=== PATIENT | male | born 1960 | race Two or more races ===

== ENCOUNTER 2016-06-02 19:51 | Emergency (ER) | payer OTHER ==
[~2016-06-02] VITALS: Ht 170.2 cm; Wt 68.0 kg
[2016-06-02] MEDS ORDERED: Tubing IV Cassette IV ONE (20:24)
--- NOTE | 2016-06-02 20:38 | Emergency Room Report ---
History of Present Illness General Chief Complaint: Alcohol Intoxication Source: Patient, EMS (CORETTA PACHECO D.O.) Present Illness HPI Patient was brought in from the street with complaints of altered mental status Patient reportedly had order of alcohol Initially patient was somewhat somnolent sluggish to respond however over his stay he has become more responsive Patient is able to deny any chest pain Denies any vomiting or diarrhea denies any back or flank pain he was not sure how he ended up in the hospital History of present illness remains somewhat limited given the patient's initial ability to provide history (CORETTA PACHECO D.O.) Allergies: Coded Allergies: No Known Allergies (Unverified , 06/02/16) Patient History Limited by: medical condition Past Medical History: see triage record Pertinent Family History: unable to obtain Reviewed Nursing Documentation: PMH: Agreed, PSxH: Agreed (CORETTA PACHECO D.O.) Nursing Documentation-PMH Past Medical History: No Stated History (CORETTA PACHECO D.O.) Review of Systems All Other Systems: limited - Other than the ones mentioned in the history of present illness all others are reviewed however they do stay limited due to the patient's mental status (CORETTA PACHECO D.O.) Physical Exam Vital Signs Date Time Temp Pulse Resp B/P Pulse Ox O2 Delivery O2 Flow Rate FiO2 06/02/16 19:47 98.1 92 17 153/101 92 Sp02 EP Interpretation: reviewed, normal General Appearance: no apparent distress Head: normocephalic, atraumatic Eyes: bilateral eye PERRL ENT: normal pharynx, no angioedema Neck: full range of motion, supple, thyroid normal Respiratory: lungs clear, normal breath sounds Cardiovascular #1: regular rate, rhythm, no edema Gastrointestinal: non tender, soft Musculoskeletal: other - Patient moving all extremities without any obvious focal deficit Neurologic: other - Patient has become more oriented to his stay, initially the crease GCS nonverbal at this time the patient has become more verbal and appropriately responsive, , Psychiatric: mood/affect normal Skin: other Lymphatic: no adenopathy (CORETTA PACHECO D.O.) Medical Decision Making Diagnostic Impression: Primary Impression: Acute alcoholic intoxication Qualified Codes: F10.129 - Alcohol abuse with intoxication, unspecified Additional Impression: Hyperglycemia ER Course Patient awake and states has metformin at home. Ambulates without difficulty. Glucose improved. In denial about problems with sugars and alcohol. Not suicidal. Laboratory Tests Test 06/02/16 20:10 06/02/16 21:45 White Blood Count 10.1 K/UL (4.8-10.8) Red Blood Count 5.56 M/UL (4.70-6.10) Hemoglobin 18.1 G/DL (14.2-18.0) *H Hematocrit 51.3 % (42.0-52.0) Mean Corpuscular Volume 92 FL (80-99) Mean Corpuscular Hemoglobin 32.6 PG (27.0-31.0) H Mean Corpuscular Hemoglobin Concent 35.4 G/DL (32.0-36.0) Red Cell Distribution Width 12.1 % (11.6-14.8) Platelet Count 202 K/UL (150-450) Mean Platelet Volume 10.3 FL (6.5-10.1) H Neutrophils (%) (Auto) 71.6 % (45.0-75.0) Lymphocytes (%) (Auto) 20.0 % (20.0-45.0) Monocytes (%) (Auto) 5.9 % (1.0-10.0) Eosinophils (%) (Auto) 1.0 % (0.0-3.0) Basophils (%) (Auto) 1.4 % (0.0-2.0) Prothrombin Time 10.2 SEC (9.30-11.50) Prothrombin Time INR 1.0 (0.9-1.1) PTT 22 SEC (23-33) L Sodium Level 139 mEQ/L (135-145) Potassium Level 4.0 mEQ/L (3.4-4.9) Chloride Level 93 mEQ/L (98-107) L Carbon Dioxide Level 24 mEQ/L (20-30) Anion Gap 22 (5-15) H Blood Urea Nitrogen 15 mg/dL (7-23) Creatinine 1.1 mg/dL (0.7-1.2) Estimate Glomerular Filtration Rate > 60 mL/min (>60) Glucose Level 451 mg/dL (74-106) H Calcium Level 9.2 mg/dL (8.6-10.2) Total Bilirubin 0.3 mg/dL (0.0-1.2) Aspartate Amino Transferase (AST) 45 U/L (5-40) H Alanine Aminotransferase (ALT) 62 U/L (3-41) H Alkaline Phosphatase 85 U/L (40-129) Total Creatine Kinase 364 U/L (38-174) H Creatine Kinase MB 2.4 ng/mL (< 6.7) Creatine Kinase MB Relative Index 0.6 Troponin I < 0.30 ng/mL (<=0.30) Pro-B-Type Natriuretic Peptide 26 pg/mL (0-125) Total Protein 7.2 g/dL (6.6-8.7) Albumin 4.5 g/dL (3.5-5.2) Globulin 2.7 g/dL Albumin/Globulin Ratio 1.6 (1.0-2.7) Lipase 65 U/L (< 60) H Serum Alcohol 275 mg/dL Urine Opiates Screen Negative (NEGATIVE) Urine Barbiturates Screen Negative (NEGATIVE) Phencyclidine (PCP) Screen Negative (NEGATIVE) Urine Amphetamines Screen Negative (NEGATIVE) Urine Benzodiazepines Screen Negative (NEGATIVE) Urine Cocaine Screen Negative (NEGATIVE) Urine Marijuana (THC) Screen Negative (NEGATIVE) (Bc Castillo M.D.) Rhythm Strip Diag. Results EP Interpretation: yes Rhythm: NSR, no PVC's, no ectopy (Bc Castillo M.D.) Chest X-Ray Diagnostic Results EP Interpretation: Yes Findings: no consolidation, no effusion, no pneumothorax, no acute cardiopulmonary disease Number of Views: 1 (Bc Castillo M.D.) CT/MRI/US Diagnostic Results CT/MRI/US Diagnostic Results : Imaging Test Ordered: head Impression lacune, no bleed/fx (Bc Castillo M.D.) Last Vital Signs Date Time Temp Pulse Resp B/P Pulse Ox O2 Delivery O2 Flow Rate FiO2 06/02/16 19:47 98.1 92 17 153/101 92 (CORETTA PACHECO D.O.) Last Vital Signs Date Time Temp Pulse Resp B/P Pulse Ox O2 Delivery O2 Flow Rate FiO2 06/03/16 02:05 97.0 90 18 117/78 97 Room Air Status: improved (Bc Castillo M.D.) Disposition: HOME, SELF-CARE Condition: Improved CORETTA PACHECO D.O. Jun 02, 2016 20:38 Bc Castillo M.D. Jun 03, 2016 02:02
[2016-06-02 20:40] LABS: BASOPHILS % (AUTO) 1.4 % (0.0-2.0); MEAN CORPUSCULAR HEMOGLOBIN 32.6 PG (27.0-31.0); MEAN CORPUSCULAR HGB CONC 35.4 G/DL (32.0-36.0); MEAN CORPUSCULAR VOLUME 92 FL (80-99); MEAN PLATELET VOLUME 10.3 FL (6.5-10.1); MONOCYTES % (AUTO) 5.9 % (1.0-10.0); NEUTROPHILS % (AUTO) 71.6 % (45.0-75.0); PLATELET COUNT 202 K/UL (150-450); RED BLOOD COUNT 5.56 M/UL (4.70-6.10); RED CELL DISTRIBUTION WIDTH 12.1 % (11.6-14.8); WHITE BLOOD COUNT 10.1 K/UL (4.8-10.8)
[2016-06-02 20:56] LABS: PROTHROMBIN TIME 10.2 SEC (9.30-11.50)
[2016-06-02 21:10] LABS: TROPONIN I < 0.30 ng/mL (<=0.30)
[2016-06-02 21:14] LABS: ALANINE AMINOTRANSFERASE 62 U/L (3-41); ALBUMIN/GLOBULIN RATIO 1.6 (1.0-2.7); ALCOHOL 275 mg/dL; ANION GAP 22 (5-15); ASPARTATE AMINO TRANSFERASE 45 U/L (5-40); CALCIUM 9.2 mg/dL (8.6-10.2); CARBON DIOXIDE 24 mEQ/L (20-30); CHLORIDE 93 mEQ/L (98-107); CREATININE 1.1 mg/dL (0.7-1.2); GLOMERULAR FILTRATION RATE > 60 mL/min (>60); HEMOLYSIS 8; LIPASE 65 U/L (< 60); SODIUM 139 mEQ/L (135-145); TOTAL PROTEIN 7.2 g/dL (6.6-8.7)
[2016-06-02 21:24] VITALS: BP 129/84
[2016-06-02 21:24] LABS: CKMB 2.4 ng/mL (< 6.7)
[2016-06-02 23:53] VITALS: BP 117/79
[2016-06-03 01:54] VITALS: BP 117/78
[2016-06-03 02:05] VITALS: BP 117/78
--- NOTE | 2016-06-03 09:19 | Diagnostic Imaging Report ---
Indication: Altered mental status Technique: Continuous helical CT scanning of the head was performed without intravenous contrast material. Axial and coronal 5 mm sections were generated. Radiation dose was minimized using automated exposure control Dose: Total Dose Length Product - DLP [address] Dose Index - CTDIvol(s) 70.38 mGy. Comparison: None Findings: The ventricular system is normal in size and configuration. There is no shift of midline structures. No abnormal extra-axial fluid collections are noted. There is no evidence of intracerebral bleeding. No other abnormal high or low density areas are noted within the brain. 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 The calvarium is intact. The sinuses are clear. The mastoids are clear. The included orbits are unremarkable. 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 The CT scanner at [facility] is accredited by the [employer] and the scans are performed using protocols designed to limit radiation exposure to as low as reasonably achievable to attain images of sufficient resolution adequate for diagnostic evaluation.
--- NOTE | 2016-06-03 11:14 | Diagnostic Imaging Report ---
Indication: Chest pain Technique: One view of the chest Comparison: none Findings: Lungs and pleural spaces are clear. Aorta is tortuous and ectatic. There is minimal atelectasis at the left lung base Impression: No acute process
--- NOTE | 2016-06-03 13:42 | Cardiology Report ---
APPROVED REPORT EKG Measurement Heart [id number] Normal sinus rhythm Incomplete left bundle branch block Borderline ECG
== END 2016-06-03 02:05 | disposition home or self-care (01) ==
LOC: EDBD 19:51 → EMR 22:25
DX: F10.129 Alcohol abuse with intoxication, unspecified (principal); R73.9 Hyperglycemia, unspecified
CPT/HCPCS: 36415; 70450; 71010; 80053; 80300; 82550; 82553; 82962; 83690; 83880; 84484; 85025; 85610; 85730; 93005; 96360; 96361; 96374; 99284; G0480; J1815; 80329